=== PATIENT | male | born 1960 | race African-American/Black ===

== ENCOUNTER 2017-01-23 10:31 | Emergency (ER) | payer BC ==
[~2017-01-23] VITALS: Ht 182.9 cm; Wt 85.8 kg
[2017-01-23] MEDS ORDERED: IBUPROFEN800 MG PO (11:14)
[2017-01-23] MEDS ORDERED: ONCE DAILY1 EACH PO (11:16)
[2017-01-23 11:18] LABS: HEMATOCRIT 48.8 % (38.0-50.0); MCH 29.6 PG (29.0-34.0); MEAN PLAT.VOLUME 10.5 uM^3 (9.0-12.4); PLATELET COUNT 198 K/uL (156-360); RBC DIS.WIDTH-CV 13.6 % (11.8-14.6); RBC DIS.WIDTH-SD 43.7 % (39-53); RED BLOOD COUNT 5.61 M/uL (4.00-5.50)
[2017-01-23] MEDS ORDERED: LISINOPRIL10 MG PO (11:18)
[2017-01-23 11:30] LABS: CHLORIDE 103 mEq/L (99-109); POTASSIUM 4.4 mEq/L (3.7-5.4); SODIUM 141 mEq/L (136-147)
[2017-01-23 11:31] LABS: AMYLASE 69 IU/L (1-118)
[2017-01-23 11:33] LABS: GLUCOSE 105 mg/dL (70-99)
[2017-01-23 11:34] LABS: ANION GAP 17 MEQ/L (2-14)
[2017-01-23 11:35] LABS: TOTAL BILIRUBIN 0.9 mg/dL (0.0-1.0)
[2017-01-23 11:36] LABS: ALKALINE PHOSPHATASE 65 IU/L (3-129)
[2017-01-23 11:37] LABS: UREA NITROGEN (BUN) 9 mg/dL (9-23)
[2017-01-23 11:38] LABS: GFR ESTIMATE (CALCULATED) > 59 mL/min/
[2017-01-23 11:40] LABS: LIPASE 20 U/L (1.0-51.0)
[2017-01-23 11:50] LABS: ADD MIUA? YES; BILIRUBIN NEGATIVE; BLOOD NEGATIVE; COLOR YELLOW ((YELLOW)); GLUCOSE (STRIP) NEGATIVE; KETONES 80; LEUKOCYTES NEGATIVE; NITRITE NEGATIVE; PROTEIN (STRIP) 30; UROBILINOGEN 0.2 MG/DL (0.2-1.0)
[2017-01-23 12:03] LABS: BACTERIA NONE SEEN /HPF; EPITHELIAL CELLS RARE /HPF; MUCUS 2+ /LPF; RED BLOOD CELLS 0-5 /HPF (0-5); UCUL ADDED? NO; WHITE BLOOD CELLS 0-5 /HPF (0-5)
[2017-01-23] MEDS ORDERED: BENTYL20 MG PO (14:11)
[2017-01-23] MEDS ORDERED: ZOFRAN ODT4 MG PO (14:11)
[2017-01-23] MEDS ORDERED: PHENERGAN25 MG PR (14:49)
[2017-01-23 15:45] VITALS: BP 165/102
== END 2017-01-23 15:49 | disposition home or self-care (01) ==
LOC: EME 10:31
DX: R10.13 Epigastric pain (principal); R11.2 Nausea with vomiting, unspecified; R51 Headache; R19.7 Diarrhea, unspecified; I10 Essential (primary) hypertension; Z87.891 Personal history of nicotine dependence
CPT/HCPCS: 74177; 80053; 81003; 82150; 83690; 85027; 99281; 99285; J1885; J2405; J2765; J7030